=== PATIENT | female | born 1980 | race Caucasian/White ===

== ENCOUNTER 2019-01-28 14:13 | Emergency (ER) | payer OTHER ==
--- NOTE | 2019-01-28 14:23 | EDPHY ---
H & P Time Seen by Provider: 01/28/19 14:23 HPI/ROS: CHIEF COMPLAINT: Left flank pain for 8 days HISTORY OF PRESENT ILLNESS: Patient has a history of kidney stones which she was able to past 3 years ago. She started having left flank pain about 8 days ago, does not radiate. Little bit more painful putting on her shoes today. She saw her primary care physician on Tuesday and was started on Flomax and Percocet but presents today with continued pain. Not associated with vomiting or diarrhea or dysuria or hematuria but has some nausea. She says it feels identical to previous kidney stone. REVIEW OF SYSTEMS: Eye: no change in vision ENT: no sore throat Cardiac: no chest pain or syncope Pulmonary: no cough or SOB Abdomen: HPI Musculoskeletal: HPI Skin: no rash Neuro: no headache Constitutional: no fever : no urinary symptoms A comprehensive 10 point review of systems is otherwise negative aside from elements mentioned in the history of present illness. PAST MEDICAL HISTORY: Includes kidney stones, bicuspid aortic valve and coarctation repair at age 3 Social history: Nonsmoker, ED nurse General Appearance: Alert and conversant, cooperative. Eyes: No scleral icterus. ENT, Mouth: Normal mucous membranes. Respiratory: Normal respiratory effort, breath sounds equal, lungs are clear to auscultation. Cardiovascular: Regular rate and rhythm. Gastrointestinal: Abdomen is soft and non tender. Neurological: Alert, face symmetric, normal motor and sensory in extremities. Skin: Warm and dry, no rashes. Musculoskeletal: Slight left CVA tenderness but no visible swelling or discoloration. Psychiatric: Not agitated. Emergency Department course/MDM: Declined narcotics, IV lidocaine and consider nonsteroidal, will start with renal ultrasound and proceed to CT if nondiagnostic. 1535: Ultrasound per Finer shows 5 x 6 x 3 mm left UVJ stone, reviewed with the patient, no nonsteroidal with creatinine 1.3, 2 oral Percocet; declined IV pain medication. Also has to 4 mm stones remaining in the left kidney. Option of inpatient urology consultation discussed, but the patient would prefer to be discharged which I think is reasonable, ambulatory, will follow up with [facility] through her primary care practice. Recommended follow-up in the next 24-48 hours. Smoking Status: Never smoked Constitutional: Initial Vital Signs Temperature (C) 37.5 C 01/28/19 14:15 Heart Rate 114 H 01/28/19 14:15 Respiratory Rate 18 01/28/19 14:15 Blood Pressure 161/88 H 01/28/19 14:15 O2 Sat (%) 96 01/28/19 14:15 O2 Delivery Mode Room Air Allergies/Adverse Reactions: No Known Allergies Allergy (Unverified 01/28/19 14:19) Home Medications: Medication Instructions Recorded Losartan Potassium 01/28/19 Wellbutrin Sr 01/28/19 oxyCODONE/APAP 5/325 [Percocet] 1 tab PO Q4-6PRN PRN #11 tab 01/28/19 Medical Decision Making - Diagnostics Imaging Results: Imaging Impressions Abdomen/Pelvis Ultrasound 01/28/19 14:37 Impression: 1. Moderate left-sided hydronephrosis with distal left ureteral calculus near the UVJ measuring about 5 x 6 x 3 mm. 2. Nephrolithiasis upper and lower pole left kidney. 3. Normal-appearing right kidney. Findings discussed with Shayne Bailey M.D. at 15:34 hour, 01/28/2019. Imaging: Discussed imaging studies w/ on call pharmacy technician Radiologist Differential Diagnosis: Differential considered including but not limited to UTI or pyelonephritis, renal colic, musculoskeletal, sciatica - Data Points Laboratory Results: Laboratory Results 01/28/19 15:10 01/28/19 15:10 01/28/19 01/28/19 01/28/19 15:23 15:10 15:10 WBC RBC Hgb Hct MCV MCH MCHC RDW Plt Count MPV Neut % (Auto) Lymph % (Auto) Bibb % (Auto) Eos % (Auto) Baso % (Auto) Nucleat RBC Rel Count Absolute Neuts (auto) Absolute Lymphs (auto) Absolute Monos (auto) Absolute Eos (auto) Absolute Basos (auto) Absolute Nucleated RBC Immature Gran % Immature Gran # Sodium 139 mEq/L mEq/L (135-145) Potassium 4.4 mEq/L mEq/L (3.5-5.2) Chloride 107 mEq/L mEq/L (97-110) Carbon Dioxide 24 mEq/l mEq/l (22-31) Anion Gap 8 mEq/L mEq/L (6-14) BUN 13 mg/dL mg/dL (7-23) Creatinine 1.3 mg/dL H mg/dL (0.6-1.0) Estimated GFR 46 Glucose 101 mg/dL H mg/dL (70-100) Calcium 9.0 mg/dL mg/dL (8.5-10.4) Beta HCG, Qual NEGATIVE Urine Color PALE YELLOW Urine Appearance CLEAR Urine pH 5.0 (5.0-7.5) Ur Specific Sunflower 1.004 (1.002-1.030) Urine Protein NEGATIVE (NEGATIVE) Urine Ketones NEGATIVE (NEGATIVE) Urine Blood NEGATIVE (NEGATIVE) Urine Nitrate NEGATIVE (NEGATIVE) Urine Bilirubin NEGATIVE (NEGATIVE) Urine Urobilinogen NEGATIVE EU EU (0.2-1.0) Ur Leukocyte Esterase NEGATIVE (NEGATIVE) Urine Glucose NEGATIVE (NEGATIVE) 01/28/19 15:10 WBC 10.24 10^3/uL H 10^3/uL (3.80-9.50) RBC 3.87 10^6/uL L 10^6/uL (4.18-5.33) Hgb 11.8 g/dL L g/dL (12.6-16.3) Hct 35.2 % L % (38.0-47.0) MCV 91.0 fL fL (81.5-99.8) MCH 30.5 pg pg (27.9-34.1) MCHC 33.5 g/dL g/dL (32.4-36.7) RDW 12.3 % % (11.5-15.2) Plt Count 185 10^3/uL 10^3/uL (150-400) MPV 11.6 fL fL (8.7-11.7) Neut % (Auto) 78.3 % H % (39.3-74.2) Lymph % (Auto) 10.4 % L % (15.0-45.0) Bibb % (Auto) 9.6 % % (4.5-13.0) Eos % (Auto) 1.0 % % (0.6-7.6) Baso % (Auto) 0.4 % % (0.3-1.7) Nucleat RBC Rel Count 0.0 % % (0.0-0.2) Absolute Neuts (auto) 8.03 10^3/uL H 10^3/uL (1.70-6.50) Absolute Lymphs (auto) 1.06 10^3/uL 10^3/uL (1.00-3.00) Absolute Monos (auto) 0.98 10^3/uL H 10^3/uL (0.30-0.80) Absolute Eos (auto) 0.10 10^3/uL 10^3/uL (0.03-0.40) Absolute Basos (auto) 0.04 10^3/uL 10^3/uL (0.02-0.10) Absolute Nucleated RBC 0.00 10^3/uL 10^3/uL (0-0.01) Immature Gran % 0.3 % % (0.0-1.1) Immature Gran # 0.03 10^3/uL 10^3/uL (0.00-0.10) Sodium Potassium Chloride Carbon Dioxide Anion Gap BUN Creatinine Estimated GFR Glucose Calcium Beta HCG, Qual Urine Color Urine Appearance Urine pH Ur Specific Sunflower Urine Protein Urine Ketones Urine Blood Urine Nitrate Urine Bilirubin Urine Urobilinogen Ur Leukocyte Esterase Urine Glucose Medications Given: Discontinued Medications Lidocaine HCl 100 mg/ Sodium (Chloride) 110 mls @ 600 mls/hr IV EDNOW ONE Stop: 01/28/19 14:52 Last Admin: 01/28/19 15:15 Dose: 110 mls Sodium Chloride (Ns) 1,000 mls @ 0 mls/hr IV ONCE ONE PRN Reason: Wide Open Stop: 01/28/19 15:37 Last Admin: 01/28/19 15:37 Dose: 1,000 mls Oxycodone/Acetaminophen (Percocet 5/325) 1 tab PO EDNOW ONE Stop: 01/28/19 15:55 Last Admin: 01/28/19 16:05 Dose: 1 tab Oxycodone/Acetaminophen (Percocet 5/325) 1 tab PO EDNOW ONE Stop: 01/28/19 16:01 Last Admin: 01/28/19 16:05 Dose: 1 tab Departure - Departure Disposition: Home, Routine, Self-Care Clinical Impression: Renal colic on left side Condition: Good Instructions: Renal Colic (ED) Additional Instructions: Your creatnine was 1.3 today; get it checked later this week. Hold off on NSAIDs until rechecked. Followup with [facility] urology in next 24-48 hours; bring US to appointment. Referrals: Nhung Corrales MD [Primary Care Provider] - As per Instructions Prescriptions: oxyCODONE/APAP 5/325 [Percocet] 1 tab PO Q4-6PRN PRN #11 tab PRN Reason: Pain
[2019-01-28] MEDS ORDERED: LIDOCAINE 1% 100 MG in NS 100 ML IV ONE (14:42)
[2019-01-28 15:34] LABS: PLATELET COUNT 185 10^3/uL (150-400)
[2019-01-28] MEDS ORDERED: NS 1,000 ML IV ONE (15:36)
[2019-01-28] MEDS ORDERED: OXYCODONE/APAP 5/325 TAB PO ONE ×2 (15:54→16:00)
[2019-01-28 16:43] VITALS: BP 139/89
== END 2019-01-28 16:45 | disposition home or self-care (01) ==
DX: N13.0 Hydronephrosis with ureteropelvic junction obstruction (principal); N20.0 Calculus of kidney; N23 Unspecified renal colic
CPT/HCPCS: 96374